=== PATIENT | female | born 1980 | race Two or more races ===

== ENCOUNTER 2023-01-24 10:15 | Outpatient (OUT) | payer OTHER, SELFPAY ==
[2023-01-24 10:44] LABS: Estimated Average Glucose 97 mg/dL
[2023-01-24 10:59] LABS: Basophils Percent Auto 0.4 % (0.2-2.0); Eosinophils Absolute Auto 0.2 10^3/uL (0.0-0.7); Eosinophils Percent Auto 2.3 % (0.9-7.0); Hemoglobin 11.1 g/dL (12.0-16.0); Immature Granulocytes Abs Auto 0.02 10^3/uL (0.00-0.03); Immature Granulocytes Pct Auto 0.3 % (0.0-0.5); Lymphocytes Absolute Auto 2.2 10^3/uL (1.2-3.8); Lymphocytes Percent Auto 29.4 % (20.5-60.0); Mean Corpuscular HGB Conc 30.8 g/dL (29.9-35.2); Mean Corpuscular Hemoglobin 27.5 pg (26.7-34.0); Mean Corpuscular Volume 89.3 fL (81.0-99.0); Mean Platelet Volume 10.7 fL (9.5-13.5); Monocytes Absolute Auto 0.4 10^3/uL (0.3-0.8); Monocytes Percent Auto 5.6 % (1.7-12.0); Neutrophils Absolute Auto 4.6 10^3/uL (1.4-6.5); Platelet Count 364 10^3/uL (150-450); Red Blood Count 4.03 10^6/uL (4.20-5.40); Red Cell Distribution Width 14.6 % (11.0-15.0); White Blood Count 7.4 10^3/uL (4.0-11.0)
[2023-01-24 11:30] LABS: Alanine Aminotransferase 21 U/L (14-59); Albumin Globulin Ratio 0.8; Albumin Level 3.2 g/dL (3.4-5.0); Alkaline Phosphatase 104 U/L (46-116); Anion Gap 10.6; Aspartate Amino Transferase 15 U/L (15-37); BUN Creatinine Ratio 16.9; Bilirubin Total 0.4 mg/dL (0.2-1.0); Carbon Dioxide 29.4 mmol/L (21.0-32.0); Chloride 104 mmol/L (98-107); Chol HDL Ratio 3.6; Cholesterol 181 mg/dL (<=200); Estimated GFR (African America >60 (>=60); Estimated GFR (Non-African Ame >60 (>=60); Free T3 1.81 pg/mL (2.18-3.98); Globulin 3.9 g/dL; Glucose 88 mg/dL (74-106); HDL Cholesterol 50 mg/dL (40-60); LDL Cholesterol Calculated 111.8 mg/dL; Sodium 140 mmol/L (136-145); Thyroid Stimulating Hormone 1.691 uIU/mL (0.358-3.740); Total Protein 7.1 g/dL (6.4-8.2); Triglycerides 96 mg/dL (<=150); VLDL CHOLESTEROL 19.2 mg/dL
[2023-01-25 11:15] LABS: Insulin 7.7 uIU/mL (2.6-24.9)
== END 2023-01-24 10:16 | disposition home or self-care (01) ==
LOC: LAB 10:21
PROVIDERS: PCP Nurse Practitioner Family; Visit Provider Nurse Practitioner Family
DX: Z00.00 Encounter for general adult medical examination without abnormal findings (principal)
CPT/HCPCS: 36415; 80053; 80061; 82306; 83036; 83525; 83540; 84436; 84443; 84481; 85025

== ENCOUNTER 2023-10-01 09:05 | Emergency (ER) | payer OTHER, SELFPAY ==
[2023-10-01 09:10] VITALS: BP 146/98; PULSE 75; TEMP 36.8; O2SAT 98; BMI 37.8
--- NOTE | 2023-10-01 09:15 | ECG_ITS ---
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
--- NOTE | 2023-10-01 09:24 | ED.GENADUL1 ---
HPI HPI - General Adult General Chief complaint: Upper Respiratory Infection Stated complaint: CHEST PAIN, SOB Time Seen by Provider: 10/01/23 09:14 Source: patient Mode of arrival: walk-in Limitations: no limitations History of Present Illness HPI narrative: 43-year-old female to the emergency department with chief complaint of cough, nasal congestion, sore throat, malaise, body aches, chills. Patient reports symptoms began suddenly on Thursday. She just returned home from a trip to [place]. She reports the group of girls that she was with all have the symptoms. She reports chest pain when coughing. She denies any shortness of breath. No leg swelling. No history of DVT or PE. Related Data Previous Rx's ?Medication ?Instructions ?Recorded albuterol sulfate 90 mcg/actuation 2 inh inhalation Q4H PRN shortness 10/01/23 aerosol inhaler of breath or wheezing #6.7 grams futurvaogsywqgg-envfloccaoracuh-OJ 5 ml PO Q4H PRN cold symptoms #200 10/01/23 2 mg-30 mg-10 mg/5 mL oral syrup mL (Bromfed DM) prednisone 20 mg tablet 40 mg (2 x 20 mg) PO DAILY 5 days 10/01/23 #10 tabs Allergies Allergy/AdvReac Type Severity Reaction Status Date / Time No Known Drug Allergies Allergy Verified 10/01/23 09:10 Opioid HPI Opioid Management Most Recent Opioid Data: No Data to Display Review of Systems ROS Status of ROS 10 or more systems reviewed and unremarkable except as noted in history and below Exam Narrative Exam Narrative: VITALS: I have reviewed the triage vital signs. GENERAL: Well developed, well appearing adult in no acute distress. NEURO: Alert and oriented. Moves all extremities. Face is symmetric and expressive. EYES: PERRL. No scleral icterus or conjunctival injection. No discharge. HENT: Normocephalic, atraumatic. Hearing is grossly intact. Nares grossly patent and without discharge. Mucous membranes moist. NECK: No JVD. Patient moves neck without restriction. CARDIO: Rhythm regular. Normal rate. No murmur, rub, or gallop. Pulses equal bilaterally in the upper and lower extremity. No lower extremity edema. PULM: Rhonchi that clears with coughing. No conversational dyspnea. No splinting, stridor, or accessory muscle use. EXTREMITIES: Symmetric muscle bulk. No joint swelling. No clubbing, cyanosis, or deformity. SKIN: Warm and dry. Normal turgor. No rash or lesions appreciated. PSYCH: Mood, affect, and interaction is appropriate to the setting. Constitutional Vital Signs, click to edit/add: Last Vital Signs Temp 98.3 F 10/01/23 09:10 Pulse 64 10/01/23 10:55 Resp 18 10/01/23 10:55 BP 148/87 H 10/01/23 10:55 Pulse Ox 99 10/01/23 10:55 O2 Del Method Room Air 10/01/23 10:55 Course Vital Signs Vital signs: Vital Signs Temperature 98.3 F 10/01/23 09:10 Pulse Rate 75 10/01/23 09:10 Respiratory Rate 16 10/01/23 09:10 Blood Pressure 146/98 H 10/01/23 09:10 Pulse Oximetry 98 10/01/23 09:10 Oxygen Delivery Method Room Air 10/01/23 09:10 Temperature 98.3 F 10/01/23 09:10 Pulse Rate 64 10/01/23 10:55 Respiratory Rate 18 10/01/23 10:55 Blood Pressure 148/87 H 10/01/23 10:55 Pulse Oximetry 99 10/01/23 10:55 Oxygen Delivery Method Room Air 10/01/23 10:55 Medical Decision Making MDM Narrative Medical decision making narrative: 43-year-old female to the emergency department chief complaint of flulike symptoms. Vital stable, the patient is afebrile. Given her complaint of chest discomfort with the symptoms basic labs, EKG, troponin will be ordered. Chest x-ray is ordered. COVID swab. Patient agrees with this plan. She denies , declines testing. Low risk by HEART score (0). PERC negative effectively ruling out VTE and is low risk patient. CBC and chemistry without acute abnormality. Troponin is negative. Chest x-ray is without acute findings. COVID testing is negative Clinical diagnosis of bronchitis. Albuterol, Bromfed, prednisone. She will follow with her PCP. Return precautions were discussed. All questions were answered. The patient was discharged home. [facility] DATA #116 - Avoidance of Antibiotic Treatment for Acute Bronchitis/Bronchiolitis [x] The patient has acute bronchitis/bronchiolitis and antibiotics were not prescribed or dispensed today. [SATISFIES MIPS PERFORMANCE] Medical Records Medical records reviewed: Yes I reviewed the patient's medical records Lab Data Lab results reviewed: Yes I reviewed the patient's lab results Labs: Lab Results 10/01/23 10/01/23 Range/Units 09:20 09:24 WBC 4.7 (4.0-11.0) 10^3/uL RBC 3.95 L (4.20-5.40) 10^6/uL Hgb 11.2 L (12.0-16.0) g/dL Hct 35.5 L (36.0-48.0) % MCV 89.9 (81.0-99.0) fL MCH 28.4 (26.7-34.0) pg MCHC 31.5 (29.9-35.2) g/dL RDW 14.3 (11.0-15.0) % Plt Count 249 (150-450) 10^3/uL MPV 10.8 (9.5-13.5) fL Neut % (Auto) 42.5 L (43.0-75.0) % Lymph % (Auto) 41.3 (20.5-60.0) % [place] % (Auto) 14.5 H (1.7-12.0) % Eos % (Auto) 1.3 (0.9-7.0) % Baso % (Auto) 0.2 (0.2-2.0) % Neut # (Auto) 2.0 (1.4-6.5) 10^3/uL Lymph # (Auto) 1.9 (1.2-3.8) 10^3/uL [place] # (Auto) 0.7 (0.3-0.8) 10^3/uL Eos # (Auto) 0.1 (0.0-0.7) 10^3/uL Baso # (Auto) 0.0 (0.0-0.1) 10^3/uL Abs Immat Gran (auto) 0.01 (0.00-0.03) 10^3/uL Imm/Tot Granulo (auto) 0.2 (0.0-0.5) % Sodium 142 (136-145) mmol/L Potassium 3.5 (3.5-5.1) mmol/L Chloride 105 (98-107) mmol/L Carbon Dioxide 27.4 (21.0-32.0) mmol/L Anion Gap 13.1 BUN 12.0 (7.0-18.0) mg/dL Creatinine 0.66 (0.55-1.02) mg/dL Est GFR ( Amer) >60 (>=60) Est GFR (Non-Af Amer) >60 (>=60) BUN/Creatinine Ratio 18.2 Glucose 99 (74-106) mg/dL Calcium 8.0 L (8.5-10.1) mg/dL Troponin I High Sens 5.5 (4.0-51.3) pg/mL SARS-CoV-2 Ag (CV2AG) Negative (NEGATIVE) Imaging Data Chest x-ray: Attestation: I have reviewed the pertinent imaging results. Radiologist's impression: ITS Impressions Chest X-Ray 10/01/23 09:43 IMPRESSION: No acute cardiopulmonary process Electronically authenticated by: CLAYTON ESPINOSA Date: 10/01/2023 10:31 ECG Data Attestation: I personally reviewed and interpreted this ECG as follows: (Normal sinus rhythm at a rate of 64. No STEMI. No ischemic changes. Normal QTc.) Discharge Plan Discharge Stand Alone Forms: Portal Instructions Chief Complaint: Upper Respiratory Infection Clinical Impression: Bronchitis, Upper respiratory infection Patient Disposition: Home, Self-Care Time of Disposition Decision: 10:45 Condition: Good Mode of Transportation: Private Vehicle Prescriptions / Home Meds: New dxfkfniueawaqqx-ucijzmovr-WD [Bromfed DM] 2-30-10 mg/5 mL syrup 5 ml PO Q4H PRN (Reason: cold symptoms) Qty: 200 0RF prednisone 20 mg tablet 40 mg PO DAILY 5 Days Qty: 10 0RF albuterol sulfate 90 mcg/actuation HFA aerosol inhaler 2 inh inhalation Q4H PRN (Reason: shortness of breath or wheezing) Qty: 6.7 0RF Print Language: Ecuadorean Instructions: How to Use a Metered-Dose Inhaler (ED), Acute Bronchitis (ED) Additional Instructions: Call the office of your primary care doctor to arrange for follow-up within the above-stated timeframe. Your ED visit was focused on your acute issue and does not replace primary care. You should review your labs, imaging, and diagnoses from this ED visit with your primary care physician. There may be non-emergent/ incidental findings that need further evaluation. You should review your vital signs including blood pressure with your PCP. If you were prescribed medications you should discuss possible side-effects and drug interactions with your pharmacist. Call 911 or go to the nearest Emergency Department if you develop any new or worsening symptoms. Seek immediate medical attention if you develop: worsening shortness of breath, difficulty breathing, chest pain, nausea, vomiting, weakness, numbness, tingling, excessive sweating, loss of motion in your arms or legs, or any new or worsening symptoms. Referrals: CHAPO ALEGRIA [Primary Care Provider] - 1 week Discharge Date/Time: 10/01/23 10:56
[2023-10-01 09:34] LABS: Basophils Percent Auto 0.2 % (0.2-2.0); Eosinophils Absolute Auto 0.1 10^3/uL (0.0-0.7); Eosinophils Percent Auto 1.3 % (0.9-7.0); Hematocrit 35.5 % (36.0-48.0); Hemoglobin 11.2 g/dL (12.0-16.0); Immature Granulocytes Abs Auto 0.01 10^3/uL (0.00-0.03); Immature Granulocytes Pct Auto 0.2 % (0.0-0.5); Lymphocytes Absolute Auto 1.9 10^3/uL (1.2-3.8); Lymphocytes Percent Auto 41.3 % (20.5-60.0); Mean Corpuscular HGB Conc 31.5 g/dL (29.9-35.2); Mean Corpuscular Hemoglobin 28.4 pg (26.7-34.0); Mean Corpuscular Volume 89.9 fL (81.0-99.0); Mean Platelet Volume 10.8 fL (9.5-13.5); Monocytes Absolute Auto 0.7 10^3/uL (0.3-0.8); Monocytes Percent Auto 14.5 % (1.7-12.0); Neutrophils Percent Auto 42.5 % (43.0-75.0); Platelet Count 249 10^3/uL (150-450); Red Blood Count 3.95 10^6/uL (4.20-5.40); Red Cell Distribution Width 14.3 % (11.0-15.0); White Blood Count 4.7 10^3/uL (4.0-11.0)
--- NOTE | 2023-10-01 09:43 | XR_ITS ---
The [address] [address] Patient Name: YULI LEBRON MRN: [id number] date: 1980 Sex: F Assigned Patient Location: ER Current Patient Location: ER Accession/Order Number: [id number] Exam Date: 10/01/2023 09:39 Report Date: 10/01/2023 10:31 At the request of: ARIEL WAGNER Procedure: XR chest 2V EXAMINATION: XR chest 2V HISTORY: cough, sob COMPARISON: No relevant comparison available. TECHNIQUE: PA and lateral FINDINGS: LUNGS: No significant pulmonary parenchymal abnormalities. VASCULATURE: No increased pulmonary vasculature. PLEURA: No pneumothorax, effusion, or pleural thickening. CARDIAC: No cardiomegaly or cardiac silhouette abnormality. MEDIASTINUM: No visible mass or adenopathy. BONES: No fracture or visible bone lesion. OTHER: Negative. XR/XR chest 2V IMPRESSION: No acute cardiopulmonary process Electronically authenticated by: CLAYTON ESPINOSA Date: 10/01/2023 10:31
[2023-10-01 10:05] VITALS: PULSE 67
[2023-10-01 10:05] LABS: Anion Gap 13.1; BUN Creatinine Ratio 18.2; Carbon Dioxide 27.4 mmol/L (21.0-32.0); Chloride 105 mmol/L (98-107); Estimated GFR (African America >60 (>=60); Estimated GFR (Non-African Ame >60 (>=60); Glucose 99 mg/dL (74-106); Potassium 3.5 mmol/L (3.5-5.1); Sodium 142 mmol/L (136-145); Troponin I High Sensitivity 5.5 pg/mL (4.0-51.3)
[2023-10-01 10:16] LABS: Internal Control Within Normal Limits; SARS-CoV-2 Ag NEGATIVE (NEGATIVE)
[2023-10-01 10:55] VITALS: BP 148/87; PULSE 64; O2SAT 99
== END 2023-10-01 10:56 | disposition home or self-care (01) ==
PROVIDERS: Emergency Provider Student in an Organized Health Care Education/Training Program; PCP Nurse Practitioner Family
DX: J40 Bronchitis, not specified as acute or chronic (principal); J06.9 Acute upper respiratory infection, unspecified; Z20.822 Contact with and (suspected) exposure to COVID-19
CPT/HCPCS: 36415; 71046; 80048; 84484; 85025; 87811; 93005; 99285

== ENCOUNTER 2024-01-08 14:34 | Outpatient (OUT) | payer OTHER, SELFPAY ==
--- OUTSIDE RECORDS SUMMARY | 2024-01-08 14:38 | XMS_ITS | CCD ---
Author Organization [facility] Care Team Providers Care Apparel Sales Leader Name Role Phone CHAPO JIMENEZ Attending Unavailable CHAPO JIMENEZ Consulting Unavailable CHAPO JIMENEZ Primary Care Unavailable CHAPO JIMENEZ Admitting Unavailable Allergies Allergy Classification Reported Allergen(s) Allergy Type Date of Onset Reaction(s) Facility (1 source) Diclofenac Drug Allergy [facility] Repository Problems Active Problems Problem Classification Problem Date Documented Da te Episodic/Chronic Unclassified (3 sources) CONTACT W/AND (SUSP) EXPOS COVID-19; Translations: [CONTACT W/AND (SUSP) EXPOS COVID-19] Onset: 04-03-2021 Unclassified (1 source) COUGH, UNSPECIFIED; Translations: [COUGH, UNSPECIFIED] Onset: 04-03-2021 Past or Other Problems Problem Classification Problem Date Documented Da te Episodic/Chronic Unclassified (1 source) CONTACT W/AND (SUSP) EXPOS COVID-19; Translations: [CONTACT W/AND (SUSP) EXPOS COVID-19] Onset: 03-25-2021 Results Test Name Value Interpretation Reference Range Facil ity INFLUENZA A AND B AGon 03-27 INFLUANEGH SEE BELOW Normal [facility] Comment on above: Result Comment: Nega tive for Flu A protein angiten. Infection due to Flu A cannot be ruled out. Flu A angiten in the sample may be below the detection limit of the test. Performed By: #### I NFLUAB #### [facility] [address] [address] [address] Flora Shukla [facility] SEE BELOW Normal [facility] Comment on above: Result Comment: Nega tive for Flu B protein antigen. Infection due to Flu B cannot be ruled out. Flu B antigen in the sample may be below the detection limit of the test. Performed By: #### I NFLUAB #### [facility] [address] [address] [address] Flora Shukla INFLUENZA A AG Negative Normal NEGATIVE SEE COMMENT [facility] Comment on above: Performed By: #### I NFLUAB #### [facility] [address] [address] [address] Flora Shukla INFLUENZA B AG Negative Normal NEGATIVE SEE COMMENT [facility] Comment on above: Performed By: #### I NFLUAB #### [facility] [address] [address] [address] Flora Shukla INTERNAL CONTROLS Within Normal Limits Normal Wi thin Normal Limits [facility] Comment on above: Performed By: #### I NFLUAB #### [facility] [address] [address] [address] Flora Shukla Covid-19 PCR (CVDTB)on SARS-CoV-2 (COVID-19) RNA EBONY+probe Ql (Unsp spec) Not detected Normal NOT DETECTED [facility] Comment on above: Result Comment: This test is not yet approved or cleared by the [place] FDA. When there are no FDA-approved or cleared tests available, and other criteria are met, FDA can make tests available under an emergency access mechanism called an Emergency Use Authorization (EUA). The EUA for this test is supported by the Magnetic Grinder Operator of Health and Human Service's (HHS's) declaration that circumstances exist to justify the emergency use of in vitro diagnostics for the detection and/or diagnosis of the virus that causes COVID-19. This EUA will remain in effect (meaning this test can be used) for the duration of the COVID-19 declaration justifying emergency of IVDs, unless it is terminated or revoked by FDA (after which the test may no longer be used). When diagnostic testing is negative, the possibility of a false negative should be considered in the context of a patient's recent exposures and the presence of clinical signs and symptoms consistent with SARS-CoV-2. Performed By: #### C VDTBH #### [facility] [address] [place] [address] Dr. Flora Shukla Encounters Encounter Date Encounter Type Care Provider Facility Start: 03-25-2021 End: 03-25-2021 ambulatory [facility] Facility: Payers Date Payer Category Payer Unknown [id number] 1957 Unknown [id number] Summary Purpose Family History No Family History Records Found Advance Directives No Advanced Directives Records Found Additional Source Comments INFORMATION SOURCE (unrecogn ized section and content) DATE CREATED AUTHOR 04/04/2021 [facility] FOR RECORDS PERTAINING TO PATIENTS WHO ARE OR HAVE BEEN ENROLLED IN A CHEMICAL DEPENDENCY/SUBSTANCEABUSE PROGRAM, SOME INFORMATION MAY BE OMITTED. This clinical summary was aggregated from multiple sources. Caution should be exercised in using it in the provision of clinical care. This summary normalizes information from multiple sources, and as a consequence, information in this document may materially change the coding, format and clinical context of patient data. In addition, data may be omitted in some cases. CLINICAL DECISIONS SHOULD BE BASED ON THE PRIMARY CLINICAL RECORDS. [facility]. provides no warranty or guarantee of the accuracy or completeness of information in this document.
[2024-01-08 15:06] LABS: INR 0.94; Partial Thromboplastin Time 27.9 sec (22.3-36.2)
[2024-01-08 15:13] LABS: Basophils Percent Auto 0.4 % (0.2-2.0); Eosinophils Absolute Auto 0.2 10^3/uL (0.0-0.7); Eosinophils Percent Auto 2.2 % (0.9-7.0); Hematocrit 35.6 % (36.0-48.0); Hemoglobin 11.2 g/dL (12.0-16.0); Immature Granulocytes Abs Auto 0.03 10^3/uL (0.00-0.03); Immature Granulocytes Pct Auto 0.4 % (0.0-0.5); Lymphocytes Absolute Auto 2.4 10^3/uL (1.2-3.8); Lymphocytes Percent Auto 33.6 % (20.5-60.0); Mean Corpuscular HGB Conc 31.5 g/dL (29.9-35.2); Mean Corpuscular Hemoglobin 27.6 pg (26.7-34.0); Mean Corpuscular Volume 87.7 fL (81.0-99.0); Mean Platelet Volume 11.7 fL (9.5-13.5); Monocytes Absolute Auto 0.5 10^3/uL (0.3-0.8); Monocytes Percent Auto 6.4 % (1.7-12.0); Neutrophils Absolute Auto 4.1 10^3/uL (1.4-6.5); Platelet Count 320 10^3/uL (150-450); Red Blood Count 4.06 10^6/uL (4.20-5.40); Red Cell Distribution Width 13.9 % (11.0-15.0); White Blood Count 7.2 10^3/uL (4.0-11.0)
[2024-01-08 15:47] LABS: Alanine Aminotransferase 19 U/L (14-59); Albumin Globulin Ratio 0.8; Albumin Level 3.2 g/dL (3.4-5.0); Alkaline Phosphatase 105 U/L (46-116); Anion Gap 15.7; Aspartate Amino Transferase 16 U/L (15-37); BUN Creatinine Ratio 20.7; Bilirubin Total 0.2 mg/dL (0.2-1.0); Calcium 8.6 mg/dL (8.5-10.1); Carbon Dioxide 24.8 mmol/L (21.0-32.0); Chloride 108 mmol/L (98-107); Estimated GFR (African America >60 (>=60 mL/min/1.73m^2); Estimated GFR (Non-African Ame >60 (>=60 mL/min/1.73m^2); Free T3 2.24 pg/mL (2.18-3.98); Globulin 3.9 g/dL; Glucose 78 mg/dL (74-106); Potassium 3.5 mmol/L (3.5-5.1); Sodium 145 mmol/L (136-145); Total Protein 7.1 g/dL (6.4-8.2)
[2024-01-09 04:07] LABS: Vitamin B12 370 pg/mL (232-1245)
== END 2024-01-08 14:35 | disposition home or self-care (01) ==
LOC: LAB 14:35
PROVIDERS: PCP Nurse Practitioner Family; Visit Provider Nurse Practitioner Family
DX: R23.3 Spontaneous ecchymoses (principal); R53.83 Other fatigue; E55.9 Vitamin D deficiency, unspecified
CPT/HCPCS: 36415; 80053; 82306; 82607; 83540; 84436; 84443; 84481; 85025; 85610; 85730